=== PATIENT | male | born 1970 | race Asian ===

== ENCOUNTER → 2016-04-22 | Outpatient (CLI) | payer BC ==
--- NOTE | 2016-04-22 08:09 | DIAGNOSTIC IMAGING REPORT ---
ULTRASOUND ABDOMEN COMPLETE CLINICAL HISTORY: Generalized abdominal pain. COMPARISON STUDY: No priors. TECHNIQUE: Real-time, grayscale, and color flow sonography of the abdomen was performed. Images are reviewed in the transverse and longitudinal planes. FINDINGS: Liver: The liver is normal in size and echotexture. There is no intrahepatic biliary ductal dilatation. The main portal vein is patent. Gallbladder: The gallbladder is normal in appearance. No gallstones are identified. There is no gallbladder wall thickening or pericholecystic fluid. A sonographic Cheema's sign is reportedly absent. The common bile duct measures up to 0.5 cm in diameter. Pancreas: Visualized portions of the pancreatic head and body are normal in appearance. The splenic vein is patent. Spleen: The spleen is normal in size and echotexture, measuring 8.0 cm in length. Kidneys: The kidneys are normal in size and echotexture. There is no hydronephrosis. The right kidney measures 10.3 cm in length and the left kidney measures 10.6 cm in length. No shadowing calculi are identified. Abdominal vasculature: Visualized portions of the abdominal aorta and IVC are normal as visualized. Ascites: None. IMPRESSION: No acute sonographic abnormality is identified. Electronically signed by: Prabhakar Mcmullen M.D. 04/22/2016 8:08 AM Dictated Date/Time: 04/22/2016 8:06 AM
== END | disposition home or self-care (01) ==
LOC: C.ULTR 07:28
PROVIDERS: ATTEND Family Medicine
DX: R10.9 Unspecified abdominal pain (principal)

== ENCOUNTER → 2017-06-20 | Outpatient (CLI) | payer OTHER ==
--- NOTE | 2017-06-20 15:17 | DIAGNOSTIC IMAGING REPORT ---
(TESTICULAR) SCROTUM-CONT CLINICAL HISTORY: 47 years-old Male presenting with TESTICULAR PAIN. TECHNIQUE: Real-time grayscale and color and spectral Doppler ultrasound imaging of the scrotum was performed. COMPARISON: None. FINDINGS: Right testis: Normal echogenicity and echotexture. Testis measures 3.7 x 2.6 x 2.1 cm. Normal color Doppler flow and arterial and venous waveforms in the testicular parenchyma. Epididymal head normal. Trace hydrocele. Varicocele present. Left testis: Normal echogenicity and echotexture. Testis measures 3.7 x 2.6 x 1.9 cm. Normal color Doppler flow and arterial and venous waveforms in the testicular parenchyma. The epididymal head contains a focal heterogeneous 3 mm region. Trace hydrocele. Varicocele present. Symmetric perfusion of the testes. IMPRESSION: 1. No evidence of testicular torsion. 2. 3 mm focal epididymal head abnormality, indeterminate. Follow-up in 4-6 weeks to be considered as soft tissue mass is difficult to exclude. Electronically signed by: Demetrius Alejandro M.D. 06/20/2017 3:15 PM Dictated Date/Time: 06/20/2017 3:13 PM
== END | disposition home or self-care (01) ==
LOC: C.ULTR 14:12
PROVIDERS: ATTEND Family Medicine
DX: N50.819 Testicular pain, unspecified (principal); N50.9 Disorder of male genital organs, unspecified

== ENCOUNTER → 2017-07-18 | Outpatient (CLI) | payer OTHER ==
--- NOTE | 2017-07-18 15:19 | DIAGNOSTIC IMAGING REPORT ---
(TESTICULAR) SCROTUM-CONT CLINICAL HISTORY: 47 years-old Male presenting with TESTICULAR PAIN. TECHNIQUE: Real-time grayscale and color and spectral Doppler ultrasound imaging of the scrotum was performed. COMPARISON: 06/20/2017. FINDINGS: Right testis: Normal echogenicity and echotexture. Testis measures 3.7 x 2.8 x 1.9 cm. Normal color Doppler flow and arterial and venous waveforms in the testicular parenchyma. Epididymal head normal. Small hydrocele. No varicocele. Left testis: Normal echogenicity and echotexture. Testis measures 3.7 x 2.7 x 2.0 cm. Normal color Doppler flow and arterial and venous waveforms in the testicular parenchyma. 5 mm complex hypoechoic region in the epididymal head, indeterminate. Small hydrocele. No varicocele. Symmetric perfusion of the testes. IMPRESSION: 1. No evidence of testicular torsion. 2. Indeterminate 5 mm hypoechoic region in the left epididymal head. A solid neoplasm cannot be excluded though this may represent a spermatocele or complex epididymal cyst. This is not significantly changed in size. Continued follow-up recommended. Electronically signed by: Demetrius Alejandro M.D. 07/18/2017 3:18 PM Dictated Date/Time: 07/18/2017 3:16 PM
== END | disposition home or self-care (01) ==
LOC: C.ULTR 14:12
PROVIDERS: ATTEND Family Medicine
DX: N50.9 Disorder of male genital organs, unspecified (principal)